=== PATIENT | female | born 1955 | race Caucasian/White ===

== ENCOUNTER 2018-06-14 22:37 | Emergency (ER) | payer BC ==
[2018-06-14] MEDS ORDERED: LORazepam 0.5 MG Tab PO ONE (23:57)
--- NOTE | 2018-06-15 00:28 | EDM.PDOC ---
ED HPI GENERAL MEDICAL PROBLEM - General Chief Complaint: Neurological Problem Stated Complaint: MUSCLE SPASMS Time Seen by Provider: 06/14/18 23:22 Source of Information: Reports: Patient, Family History Limitations: Reports: No Limitations - History of Present Illness INITIAL COMMENTS - FREE TEXT/NARRATIVE: This is a 62-year-old female. She is been traveling and when she got into town she noted that she started have some shaky, jerky, tremors and she comes to the ER for evaluation. She has a history of anxiety and spells like this but she is been on citalopram and it seems to been doing well for her. She did take a very old Xanax tonight when she had this spell and it seemed to help some but when she got to the ER she started having some shaking spells again. She has no loss of consciousness since these are not seizure-type spells but she feels like her anxiety or panic related spells. She denies any fever or chills, no cough no congestion, no nausea or vomiting. - Related Data Allergies Allergy/AdvReac Type Severity Reaction Status Date / Time animal dander Allergy UNKNOWN Verified 10/16/17 09:42 BUNDLE SHAKER fluconazole [From Diflucan] Allergy UNKNOWN Verified 10/16/17 09:42 BUNDLE SHAKER gluten Allergy UNKNOWN Verified 10/16/17 09:42 BUNDLE SHAKER mold Allergy UNKNOWN Verified 10/16/17 09:42 BUNDLE SHAKER pollen extracts Allergy UNKNOWN Verified 10/16/17 09:42 BUNDLE SHAKER psyllium Allergy UNKNOWN Verified 10/16/17 09:42 BUNDLE SHAKER Sulfa (Sulfonamide Allergy UNKNWON Verified 10/16/17 09:42 BUNDLE SHAKER Antibiotics) tioconazole Allergy UNKNOWN Verified 10/16/17 09:42 BUNDLE SHAKER [From Monistat 1 (tioconazole)] Home Meds: Home Meds ALPRAZolam [Xanax] 0.5 mg PO TID PRN 10/15/17 [History] Ascorbic Acid/Collagen Hydr [Collagen Plus Vit C] 1 each PO DAILY 10/15/17 [ History] Calcium Carbonate/Vitamin D3 [Calcium 600 + Vit D 400 Softgl] 1 each PO DAILY [History] Citalopram [Celexa] 20 mg PO DAILY 10/15/17 [History] Estrogens, Conjugated [Premarin Vaginal Crm] 0.5 gm VAG ASDIRECTED PRN 10/15/17 [History] Fish Oil/[place]-3 Fatty Acids [Fish Oil 1,000 MG] 1 each PO DAILY 10/15/17 [ History] Lactobacillus Acidophilus [Probiotic] 1 each PO DAILY 10/15/17 [History] Multivitamin with Minerals [Multiple Vitamin] 1 tab PO DAILY 10/15/17 [History] Rizatriptan Benzoate [Rizatriptan] 10 mg PO ASDIRECTED PRN 10/15/17 [History] Triamcinolone Acetonide [Triamcinolone Acetonide 0.1% Crm] 1 applic TOP BID PRN 10/15/17 [History] Ubidecarenone [Coenzyme Q10] 100 mg PO DAILY 10/15/17 [History] Past Medical History HEENT History: Reports: Allergic Rhinitis Cardiovascular History: Reports: High Cholesterol Respiratory History: Reports: Bronchitis, Recurrent Gastrointestinal History: Reports: Hemorrhoids Genitourinary History: Reports: UTI, Recurrent Musculoskeletal History: Reports: Fracture, Fibromyalgia, Other (See Below) Other Musculoskeletal History: Bursitis Neurological History: Reports: Migraines Psychiatric History: Reports: Anxiety Endocrine/Metabolic History: Reports: Osteopenia Dermatologic History: Reports: Other (See Below) Other Dermatologic History: Rash - Infectious Disease History Infectious Disease History: Reports: Chicken Pox, Influenza, Measles, Mumps, Rubella - Past Surgical History HEENT Surgical History: Reports: Adenoidectomy, Tonsillectomy Social & Family History - Family History Cardiac: Reports: [place], Other (See Below) Other Cardiac Family History: Heart disease Respiratory: Reports: Asthma, Other (See Below) Other Respiratory Family Hisory: Influenza; emphysema. Neurological: Reports: CVA Psychiatric: Reports: Anxiety, OCD, PTSD Endocrine/Metabolic: Reports: Diabetes, type II - Tobacco Use Smoking Status *Q: Never Smoker - Caffeine Use Caffeine Use: Reports: Coffee, Tea - Recreational Drug Use Recreational Drug Use: No ED ROS GENERAL - Review of Systems Review Of Systems: See Below Constitutional: Denies: Fever, Chills HEENT: Reports: No Symptoms Respiratory: Denies: Shortness of Breath, Cough Cardiovascular: Denies: Chest Pain Endocrine: Reports: No Symptoms GI/Abdominal: Denies: Abdominal Pain, Diarrhea, Nausea, Vomiting : Reports: No Symptoms Musculoskeletal: Reports: Other (Muscle twitching and jerking) Skin: Reports: No Symptoms Neurological: Reports: Tremors Psychiatric: Reports: Anxiety Hematologic/Lymphatic: Reports: No Symptoms ED EXAM, NEURO - Physical Exam Exam: See Below Exam Limited By: No Limitations General Appearance: Alert, WD/WN, Anxious Eye Exam: Bilateral Eye: Normal Inspection Ears: Normal External Exam Nose: Normal Inspection Throat/Mouth: Normal Inspection, Normal Lips, Normal Voice, No Airway Compromise Head Exam: Normocephalic Neck: Supple Respiratory/Chest: No Respiratory Distress, Lungs Clear, Normal Breath Sounds Cardiovascular: Regular Rate, Rhythm, No Murmur GI/Abdominal: Soft Neurological: Alert, Normal Mood/Affect, Oriented x 3 Back Exam: Full Range of Motion Extremities: Normal Inspection, Normal Range of Motion Psychiatric: Anxious Skin Exam: Warm, Dry Course - Vital Signs Last Recorded V/S: Last Vital Signs Temp 98.5 F 06/14/18 22:46 Pulse 67 06/14/18 22:46 Resp 20 06/14/18 22:46 BP 165/81 H 06/14/18 22:46 Pulse Ox 98 06/14/18 22:46 - Orders/Labs/Meds Orders: Active Orders 24 hr Category Date Time Status LORazepam [Ativan] Med 06/15/18 01:56 Once 0.5 mg PO ONETIME ONE Labs: Laboratory Tests 06/15/18 06/15/18 Range/Units 00:07 00:07 WBC 8.05 (3.98-10.04) K/mm3 RBC 4.34 (3.98-5.22) M/mm3 Hgb 13.0 (11.2-15.7) gm/L Hct 39.6 (34.1-44.9) % MCV 91.2 (79.4-94.8) fl MCH 30.0 (25.6-32.2) pg MCHC 32.8 (32.2-35.5) g/dl RDW Std Deviation 43.6 (36.4-46.3) fL Plt Count 179 L (182-369) K/mm3 MPV 10.4 (9.4-12.3) fl Neut % (Auto) 77.4 H (34.0-71.1) % Lymph % (Auto) 15.0 L (19.3-51.7) % Mower % (Auto) 5.3 (4.7-12.5) % Eos % (Auto) 2.1 (0.7-5.8) Baso % (Auto) 0.1 (0.1-1.2) % Neut # (Auto) 6.22 H (1.56-6.13) K/mm3 Lymph # (Auto) 1.21 (1.18-3.74) K/mm3 Mower # (Auto) 0.43 H (0.24-0.36) K/mm3 Eos # (Auto) 0.17 (0.04-0.36) K/mm3 Baso # (Auto) 0.01 (0.01-0.08) K/mm3 Sodium 141 (136-145) mEq/L Potassium 3.9 (3.5-5.1) mEq/L Chloride 104 (98-107) mEq/L Carbon Dioxide 27 (21-32) mEq/L Anion Gap 13.9 (5-15) BUN 24 H (7-18) mg/dL Creatinine 0.7 (0.55-1.02) mg/dL Est Cr Clr Drug Dosing 70.93 mL/min Estimated GFR (MDRD) > 60 (>60) mL/min BUN/Creatinine Ratio 34.3 H (14-18) Glucose 134 H (80-115) mg/dL Calcium 9.1 (8.5-10.1) mg/dL Total Bilirubin 0.3 (0.2-1.0) mg/dL AST 28 (15-37) U/L ALT 45 (14-59) U/L Alkaline Phosphatase 61 (46-116) U/L Total Protein 7.0 (6.4-8.2) g/dl Albumin 3.9 (3.4-5.0) g/dl Globulin 3.1 gm/dL Albumin/Globulin Ratio 1.3 (1-2) Meds: Medications Discontinued Medications Generic Name Dose Route Start Last Admin Trade Name Freq PRN Reason Stop Dose Admin Lorazepam 0.5 mg 06/14/18 23:57 06/15/18 00:10 Ativan PO 06/14/18 23:58 0.5 mg ONETIME ONE Administration - Re-Assessments/Exams Free Text/Narrative Re-Assessment/Exam: 06/15/18 01:57 The Ativan has helped but she just got up and went to the bathroom and when she was walking back she was a little shaky. She wants to go home. I will give her another 0.5 mg at upon to help relax her and help her sleep. I explained to them that her blood work looked absolutely fine as far as electrolytes and blood sugar and I do not believe they are the reason she is having these tremors and shakes. Departure - Departure Time of Disposition: 01:58 Disposition: Home, Self-Care 01 Condition: Fair Clinical Impression: Occasional tremors, Episode of shaking - Discharge Information *PRESCRIPTION DRUG MONITORING PROGRAM REVIEWED*: Not Applicable *COPY OF PRESCRIPTION DRUG MONITORING REPORT IN PATIENT JOHNNY: Not Applicable Referrals: PCP,Not In Area [Primary Care Provider] - Forms: ED Department Discharge Additional Instructions: Increase your citalopram to a whole pill and see if that doesn't help some with the tremors and the shaking, follow-up with your doctor this week for recheck especially if these tremors and shaking continued or worsen, return to the ER as needed - My Orders Last 24 Hours: My Active Orders 06/15/18 01:56 LORazepam [Ativan] 0.5 mg PO ONETIME ONE - Assessment/Plan Last 24 Hours: My Active Orders 06/15/18 01:56 LORazepam [Ativan] 0.5 mg PO ONETIME ONE
[2018-06-15] MEDS ORDERED: LORazepam 0.5 MG Tab PO ONE (01:56)
== END 2018-06-15 02:10 | disposition home or self-care (01) ==
LOC: JD.ED 22:37
DX: R25.1 Tremor, unspecified (principal); E78.00 Pure hypercholesterolemia, unspecified; F41.9 Anxiety disorder, unspecified; Z79.899 Other long term (current) drug therapy; Z88.2 Allergy status to sulfonamides; Z91.018 Allergy to other foods; Z91.09 Other allergy status, other than to drugs and biological substances; Z88.8 Allergy status to other drugs, medicaments and biological substances
CPT/HCPCS: 36415; 80053; 85025; 99284; A9270; 99283